=== PATIENT | male | born 1985 | race Hispanic/Latino ===

== ENCOUNTER 2017-06-18 06:09 | Day surgery (SDC) | payer BC ==
[~2017-06-18] VITALS: Ht 157.5 cm; Wt 102.2 kg
[2017-06-18 07:08] VITALS: BP 144/66
[2017-06-18 10:29] VITALS: BP 138/80
[2017-06-18 11:03] VITALS: BP 118/63
== END 2017-06-18 11:26 | disposition home or self-care (01) ==
LOC: SDC 06:09 → 2SOUTH 11:08 → EDSTATUS 11:08 → SDC 11:09
DX: H33.001 Unspecified retinal detachment with retinal break, right eye (principal); Z87.891 Personal history of nicotine dependence; Z88.0 Allergy status to penicillin
CPT/HCPCS: J0330; J0690; J1100; J1120; J1885; J2250; J2405; J2710; J2795; J3010